=== PATIENT | male | born 1955 ===

== ENCOUNTER 2022-09-21 09:56 | Day surgery (SDC) | payer MEDICARE ==
[~2022-09-21 09:56] MED LIST: Metoclopramide 10 MG/2 ML SDV IV PRN
[2022-09-21] MEDS: Sodium Chloride 0.9% 1,000 ML IV SCH (10:45)
[2022-09-21] MEDS ORDERED: Propofol 200 MG/20 ML SDV ONE (13:00)
[2022-09-21 13:35] VITALS: BP 109/69; PULSE 55
== END 2022-09-21 14:45 | disposition home or self-care (01) ==
LOC: LB.SDS 09:56
PROVIDERS: ATTEND Surgery
DX: Z12.11 Encounter for screening for malignant neoplasm of colon (principal); K57.30 Diverticulosis of large intestine without perforation or abscess without bleeding; K63.89 Other specified diseases of intestine; R53.83 Other fatigue; M54.6 Pain in thoracic spine; I10 Essential (primary) hypertension; F17.200 Nicotine dependence, unspecified, uncomplicated; Z91.09 Other allergy status, other than to drugs and biological substances
CPT/HCPCS: J2704; J7030